=== PATIENT | female | born 1995 | race Caucasian/White ===

== ENCOUNTER 2024-08-08 08:01 | Inpatient (IN) | payer BC ==
[2024-08-09] MEDS ORDERED: Nubain 10 MG/ML IV PRN (05:00)
[2024-08-09] MEDS ORDERED: Zofran 4 MG/2 ML VIAL IV PRN (05:00)
[2024-08-09] MEDS ORDERED: Ephedrine Sulfate 50 MG/ML IV PRN (05:00)
[2024-08-09] MEDS ORDERED: BRETHINE 1 MG/ML SQ PRN (05:00)
[2024-08-09] MEDS ORDERED: STADOL 2 MG IV PRN (05:00)
[2024-08-09 05:49] LABS: Absolute Neutrophil Ct (ANC) 4.96 x10^3/uL (1.56-6.13); BASOPHIL % 0.4 % (0.1-1.2); Basophil (Absolute #) 0.03 x10^3/uL (0.01-0.08); Eosinophil (Absolute #) 0.23 x10^3/uL (0.04-0.36); Hemoglobin 12.6 g/dL (11.2-15.7); IMMATURE GRAN # 0.05 x10^3u/L (0.001-0.031); IMMATURE GRAN % 0.6 % (0.001-0.429); Lymphocyte (Absolute #) 1.94 x10^3/uL (1.18-3.74); Lymphocytes % 24.9 % (19.3-51.7); Mean Cell Volume 91.6 fL (79.4-94.8); Mean Corpuscular Hemoglobin 31.2 pg (25.6-32.2); Mean Corpuscular Hgb Concent. 34.1 g/dL (32.2-35.5); Mean Platelet Volume 12.2 fL (9.4-12.3); Monocyte (Absolute #) 0.57 x10^3/uL (0.24-0.86); Monocytes % 7.3 % (4.7-12.5); Neutrophil % 63.8 % (34.0-71.1); Platelet Count 155 x10^3/uL (182-369); Red Blood Count 4.04 x10^6/uL (3.93-5.22); Red Cell Distribution Width 12.6 % (11.7-14.4); White Blood Count 7.8 x10^3/uL (3.98-10.04)
[2024-08-09] MEDS: Lactated Ringers 1,000 ML IV SCH (05:50)
[2024-08-09 06:11] LABS: Amphetamine,Urine NEGATIVE (NEGATIVE); Barbiturate,Urine NEGATIVE (NEGATIVE); Benzodiazepine,Urine NEGATIVE (NEGATIVE); Cocaine,Urine NEGATIVE (NEGATIVE); Methadone,Urine NEGATIVE (NEGATIVE); Opiate,Urine NEGATIVE (NEGATIVE); PCP,Urine NEGATIVE (NEGATIVE); THC,Urine NEGATIVE (NEGATIVE)
[2024-08-09 06:32] LABS: ABO TYPING A; Antibody Screen NEGATIVE (NEGATIVE); RH TYPING NEGATIVE
[2024-08-09] MEDS: PITOCIN 30 UNITS/ LR 500 ML 30 UNITS/500 ML PLAST..BAG IV SCH (06:40)
[2024-08-09] MEDS: FENTANYL 2 MCG-BUPIV 0.125%-NS 250 ML Epidur 250 ML EPIDURAL SCH (08:21)
[2024-08-09] MEDS ORDERED: MARCAINE 0.25% PF/ EPI 1:200,000 ONE (09:57)
[2024-08-09] MEDS ORDERED: MOTRIN 400 MG PO PRN (11:29)
[2024-08-09] MEDS ORDERED: XYLOCAINE 1% HCL 20 ML MDV IJ PRN (13:00)
[2024-08-09] MEDS ORDERED: PITOCIN 30 UNITS/ LR 500 ML 30 UNITS/500 ML PLAST..BAG IV SCH (13:00)
[2024-08-09] MEDS: TUCKS TP PRN (13:18)
[2024-08-09] MEDS: Dermoplast Spray TP PRN (13:18)
[2024-08-09] MEDS: LANSINOH 40 GM TOP PRN (13:18)
[2024-08-09 14:49] VITALS: O2SAT 96
[2024-08-09] MEDS ORDERED: Adacel Vial IM ONE (15:00)
[2024-08-09] MEDS: TYLENOL EXTRA STRENGTH 500 MG PO PRN (21:14)
[2024-08-09] MEDS: Docusate Sodium 100 MG PO SCH (21:15)
[2024-08-10 06:22] LABS: Absolute Neutrophil Ct (ANC) 6.09 x10^3/uL (1.56-6.13); BASOPHIL % 0.7 % (0.1-1.2); Basophil (Absolute #) 0.06 x10^3/uL (0.01-0.08); Eosinophil % 2.3 % (0.7-5.8); Hematocrit 37.5 % (34.1-44.9); Hemoglobin 12.5 g/dL (11.2-15.7); IMMATURE GRAN # 0.06 x10^3u/L (0.001-0.031); IMMATURE GRAN % 0.7 % (0.001-0.429); Lymphocytes % 21.4 % (19.3-51.7); Mean Cell Volume 92.6 fL (79.4-94.8); Mean Corpuscular Hemoglobin 30.9 pg (25.6-32.2); Mean Corpuscular Hgb Concent. 33.3 g/dL (32.2-35.5); Mean Platelet Volume 12.6 fL (9.4-12.3); Monocyte (Absolute #) 0.56 x10^3/uL (0.24-0.86); Monocytes % 6.3 % (4.7-12.5); Neutrophil % 68.6 % (34.0-71.1); Platelet Count 147 x10^3/uL (182-369); Red Blood Count 4.05 x10^6/uL (3.93-5.22); Red Cell Distribution Width 12.6 % (11.7-14.4); White Blood Count 8.9 x10^3/uL (3.98-10.04)
--- NOTE | 2024-08-10 07:16 | PCM.DS ---
Discharge Summary Date of Admission: 08/09/24 08:57 Admitting Physician: JASMYN LINK Consults: Consults on Case 08/09/24 05:00 Notify Anesthesia Provider PRN 08/09/24 12:14 Navigation ONCE Primary Care Provider: JASMYN LINK Allergies Allergies No Known Drug Allergies Allergy (Unverified 08/09/24 06:02) Hospital Summary - Hospital Course Hospital Course: patient had an uncomplicated vaginal delivery at 38wks, mild htn - Vitals & Intake/Output Vital Signs: Vital Signs Temperature 98.2 F 08/10/24 02:00 Pulse Rate 66 08/10/24 02:00 Respiratory Rate 18 08/10/24 02:00 Blood Pressure 142/77 08/10/24 02:00 O2 Sat by Pulse Oximetry 96 08/10/24 02:00 Intake & Output: Intake & Output 08/07/24 08/08/24 08/09/24 08/10/24 11:59 11:59 11:59 11:59 Intake Total 52692 Balance 43002 Weight 83.007 kg - Lab Result Diagrams: 08/10/24 05:26 Lab Results-Last 24 Hrs: Lab Results-Last 24 Hours 08/10/24 Range/Units 05:26 WBC 8.9 (3.98-10.04) x10^3/uL RBC 4.05 (3.93-5.22) x10^6/uL Hgb 12.5 (11.2-15.7) g/dL Hct 37.5 (34.1-44.9) % MCV 92.6 (79.4-94.8) fL MCH 30.9 (25.6-32.2) pg MCHC 33.3 (32.2-35.5) g/dL RDW 12.6 (11.7-14.4) % Plt Count 147 L (182-369) x10^3/uL MPV 12.6 H (9.4-12.3) fL Gran % 68.6 (34.0-71.1) % Immature Gran % (Auto) 0.7 H (0.001-0.429) % Nucleat RBC Rel Count 0.0 (0.00-0.2) % Eos # (Auto) 0.20 (0.04-0.36) x10^3/uL Immature Gran # (Auto) 0.06 H (0.001-0.031) x10^3u/L Absolute Lymphs (auto) 1.90 (1.18-3.74) x10^3/uL Absolute Monos (auto) 0.56 (0.24-0.86) x10^3/uL Absolute Nucleated RBC 0.00 (0.00-0.012) x10^3u/L Lymphocytes % 21.4 (19.3-51.7) % Monocytes % 6.3 (4.7-12.5) % Eosinophils % 2.3 (0.7-5.8) % Basophils % 0.7 (0.1-1.2) % Absolute Granulocytes 6.09 (1.56-6.13) x10^3/uL Basophils # 0.06 (0.01-0.08) x10^3/uL Discharge Exam General Appearance: no apparent distress, alert Respiratory Exam: normal breath sounds, lungs clear, No respiratory distress Cardiovascular Exam: regular rate/rhythm, normal heart sounds Gastrointestinal/Abdomen Exam: soft, No tenderness, No mass Skin Exam: normal color, warm, dry Final Diagnosis/Problem List - Final Discharge Diagnosis/Problem (1) Normal vaginal delivery Current Visit: Yes Status: Acute Code(s): O80 - ENCOUNTER FOR FULL-TERM UNCOMPLICATED DELIVERY - Discharge Disposition: Home, Self-Care Condition: Stable Prescriptions: No Action Vit No.179/Iron/Folic [ Tablet] See Rx Instructions .ROUTE .COMPLEX Follow up with: JASMYN LINK MD [Primary Care Provider] - 6 weeks
[2024-08-10 08:42] LABS: RPR Non Reactive (Non Reactive)
[2024-08-10] MEDS: FERREX 150 PO SCH (10:06)
[2024-08-10 19:16] VITALS: BP 131/78; PULSE 71; RESP 20; TEMP 98
== END 2024-08-10 19:45 | disposition home or self-care (01) | DRG 806 ==
LOC: OB 08-09 04:53 → OBSVTOIN 08-09 08:57 → OB 08-09 08:57
PROVIDERS: ADMIT Family Medicine; ATTEND Family Medicine
PROC: 10E0XZZ Delivery of Products of Conception, External Approach (ICD-10-PCS; principal; 2024-08-09)
DX: O13.4 Gestational [pregnancy-induced] hypertension without significant proteinuria, complicating childbirth (principal); Z59.811 Housing instability, housed, with risk of homelessness; Z37.0 Single live birth; Z3A.38 38 weeks gestation of pregnancy
CPT/HCPCS: 36415; 80307; 85025; 86592; 86850; 86900; 86901; J2590; A9270-GY